=== PATIENT | male | born 1950 | race Caucasian/White ===

== ENCOUNTER 2018-11-24 19:39 | Emergency (ER) | payer MEDICARE ==
[2018-11-24] MEDS ORDERED: LIDOCAINE HCL 1% 20 ML VIAL ONE (20:10)
== END 2018-11-24 21:52 | disposition home or self-care (01) ==
LOC: EDH 19:39
DX: S93.122A Dislocation of metatarsophalangeal joint of left great toe, initial encounter (principal); Z87.891 Personal history of nicotine dependence; W55.12XA Struck by horse, initial encounter; Y93.89 Activity, other specified; Y92.89 Other specified places as the place of occurrence of the external cause; Y99.8 Other external cause status
CPT/HCPCS: 28630; 73630

== ENCOUNTER 2019-11-17 13:19 | Observation (INO) | payer MEDICARE ==
[2019-11-17] VITALS (24 sets, daily range): BP systolic 111–181; BP diastolic 63–90
[~2019-11-17] VITALS: Ht 182.9 cm; Wt 135.8 kg
[2019-11-17] MEDS ORDERED: MORPHINE SULFATE 4 MG/1ML SYG ONE ×2 (13:52→15:52)
[2019-11-17] MEDS ORDERED: ONDANSETRON HCL 4 MG/2 ML VIAL ONE ×2 (13:52→17:26)
[2019-11-17 14:12] LABS: BASOPHILS % (AUTO) 0.1 % (0.0-5.0); EOSINOPHILS % (AUTO) 0.2 % (0.0-8.0); LYMPHOCYTES % (AUTO) 6.5 % (21.0-51.0); MEAN CORPUSCULAR HEMOGLOBIN 23.3 pg (27.0-33.0); MEAN CORPUSCULAR HGB CONC 31.9 g/dL (32.0-36.0); MEAN CORPUSCULAR VOLUME 72.9 fL (79-99); MONOCYTES % (AUTO) 5.8 % (3.0-13.0); NEUTROPHILS % (AUTO) 86.9 % (40.0-77.0); PLATELET COUNT (AUTO) 289 K/uL (130-400); RED BLOOD CELL COUNT(AUTO) 5.76 MIL/uL (4.50-6.20); RED CELL DISTRIBUTION WIDTH 15.8 % (11.0-15.5); WHITE BLOOD COUNT (AUTO) 13.3 K/uL (4.8-10.8)
[2019-11-17 14:15] LABS: APPEARANCE,URINE Clear (CLEAR); BILIRUBIN,URINE Negative (NEGATIVE); COLOR,URINE Yellow (YELLOW); GLUCOSE, URINE (UA) Negative (NEGATIVE); KETONES,URINE Negative (NEGATIVE); LEUKOCYTE ESTERASE ,URINE Negative (NEGATIVE); NITRATE,URINE Negative (NEGATIVE); OCCULT BLOOD,URINE Trace (NEGATIVE); PROTEIN,URINE Negative (NEGATIVE); UROBILINOGEN,URINE 0.2 mg/dL (0.2-1.0)
[2019-11-17 14:24] LABS: POTASSIUM 3.9 mmol/L (3.5-5.1)
[2019-11-17 14:30] LABS: ALBUMIN 3.8 g/dL (3.5-5.0); BILIRUBIN,TOTAL 0.5 mg/dL (0.2-1.0); TOTAL PROTEIN, SERUM 7.2 g/dL (6.0-8.3)
[2019-11-17 14:49] LABS: RBC,URINE 0-1 /HPF (0-1)
[2019-11-17 14:50] LABS: BACTERIA,URINE None Seen /HPF (None Seen); SQUAMOUS EPITHELIAL CELL,UR 0-2 /HPF (0-2); WBC,URINE 0-1 /HPF (0-1)
[2019-11-17] MEDS ORDERED: ZOSYN 3.375GM+NS 50ML 50 ML IV ONE (15:52)
[2019-11-17] MEDS ORDERED: LIDOCAINE PF 2% 5ML ABBOJECT ONE (17:25)
[2019-11-17] MEDS ORDERED: SUCCINYLCHOLINE CHLORIDE 20 MG/ML 10 ML VIAL ONE (17:25)
[2019-11-17] MEDS ORDERED: MIDAZOLAM HCL 1 MG/ML 2ML VIAL ONE (17:26)
[2019-11-17] MEDS ORDERED: PROPOFOL 10 MG/ML 20ML VIAL IV ONE (17:26)
[2019-11-17] MEDS ORDERED: ROCURONIUM 10MG/1ML SYR 10 MG/ML ML ONE (17:27)
[2019-11-17] MEDS ORDERED: FENTANYL CITRATE PF 50 MCG/1 ML 2ML VIAL ONE ×2 (17:33→18:21)
[2019-11-17] MEDS ORDERED: LACTULOSE 20 GM/30 ML UDCUP PO PRN (17:45)
[2019-11-17] MEDS ORDERED: ONDANSETRON HCL 4 MG/2 ML VIAL IV PRN ×2 (17:45→20:45)
[2019-11-17] MEDS ORDERED: ACETAMINOPHEN 325 MG TAB PO PRN (17:45)
[2019-11-17] MEDS ORDERED: BUPIVACAINE/PF 0.5% 30ML VIAL ONE (18:00)
[2019-11-17] MEDS ORDERED: DEXAMETHASONE SOD PHOSPHATE 10MG/ML 1ML VIAL ONE (18:25)
[2019-11-17] MEDS ORDERED: GLYCOPYRROLATE 1 MG/5 ML SYRINGE ONE (18:36)
[2019-11-17] MEDS ORDERED: NEOSTIGMINE 5MG/5ML SYR IV ONE (18:36)
[2019-11-17] MEDS ORDERED: KETOROLAC TROMETHAMINE 30MG/ML ONE (18:38)
[2019-11-17] MEDS: LACTATED RINGERS 1000ML 1,000 ML IV SCH ×2 (19:00→23:23)
[2019-11-17] MEDS: ZOSYN 3.375GM+NS 50ML 50 ML IV SCH ×2 (19:59→20:29)
[2019-11-17] MEDS: FAMOTIDINE/PF 20 MG/2 ML VIAL IV SCH (20:29)
[2019-11-17] MEDS ORDERED: MORPHINE SULFATE 4 MG/1ML SYG IVP PRN (20:30)
[2019-11-17] MEDS ORDERED: ACETAMINOPHEN-CODEINE 300/30MG TAB PO PRN (20:45)
[2019-11-18 00:17] VITALS: BP 105/67
[2019-11-18 03:49] VITALS: BP 97/60
[2019-11-18 03:50] LABS: BASOPHILS % (AUTO) 0.1 % (0.0-5.0); EOSINOPHILS % (AUTO) 0.1 % (0.0-8.0); HEMATOCRIT 37.5 % (42-54); LYMPHOCYTES % (AUTO) 8.6 % (21.0-51.0); MEAN CORPUSCULAR HEMOGLOBIN 23.2 pg (27.0-33.0); MEAN CORPUSCULAR HGB CONC 31.7 g/dL (32.0-36.0); MEAN CORPUSCULAR VOLUME 73.2 fL (79-99); MONOCYTES % (AUTO) 6.7 % (3.0-13.0); NEUTROPHILS % (AUTO) 84.1 % (40.0-77.0); PLATELET COUNT (AUTO) 247 K/uL (130-400); RED BLOOD CELL COUNT(AUTO) 5.12 MIL/uL (4.50-6.20); RED CELL DISTRIBUTION WIDTH 15.8 % (11.0-15.5); WHITE BLOOD COUNT (AUTO) 11.2 K/uL (4.8-10.8)
[2019-11-18 04:08] LABS: BILIRUBIN,TOTAL 0.5 mg/dL (0.2-1.0); POTASSIUM 4.3 mmol/L (3.5-5.1); TOTAL PROTEIN, SERUM 6.3 g/dL (6.0-8.3)
[2019-11-18] MEDS: ZOSYN 3.375GM+NS 50ML 50 ML IV SCH (05:11)
[2019-11-18 08:34] VITALS: BP 112/63
[2019-11-18] MEDS: FAMOTIDINE/PF 20 MG/2 ML VIAL IV SCH (09:13)
[2019-11-18 11:34] VITALS: BP 116/71
[2019-11-18] MEDS ORDERED: METR500T PO (13:02)
== END 2019-11-18 16:15 | disposition home or self-care (01) ==
LOC: EDH 13:19 → INTOOBSV 17:39 → EDHIP 17:39 → 3AH 20:36
PROVIDERS: ADMIT Hospitalist; ATTEND Hospitalist
DX: K35.80 Unspecified acute appendicitis (principal); J98.11 Atelectasis; K57.30 Diverticulosis of large intestine without perforation or abscess without bleeding; K42.9 Umbilical hernia without obstruction or gangrene; Z87.891 Personal history of nicotine dependence
CPT/HCPCS: 36415 ×2; 44970; 74176; 80053 ×2; 81001; 85025 ×2; 93005; 96361; 96365; 96366 ×2; 96375; 96376; 99285; A4649 ×5; A4930; A6206; A6207; C1769 ×3; G0378 ×8; J0330; J1100; J1885; J2001; J2250; J2270 ×2; J2405 ×2; J2543 ×3; J2704; J2710; J3010 ×2; J3490 ×4; J7030; J7120 ×2

== ENCOUNTER 2020-10-11 05:55 | Day surgery (SDC) | payer MEDICARE ==
[~2020-10-11] VITALS: Ht 182.9 cm; Wt 129.3 kg
[2020-10-11] VITALS (7 sets, daily range): BP systolic 98–133; BP diastolic 60–75
[2020-10-11] MEDS ORDERED: 0.9%NACL 1000ML 1,000 ML IV ONE (06:47)
[2020-10-11] MEDS ORDERED: PROPOFOL 10 MG/ML 20ML VIAL IV ONE (07:45)
[2020-10-11] MEDS ORDERED: LIDOCAINE PF 100MG/5ML (2%) SYRINGE 5ML ONE (07:45)
[2020-10-11] MEDS ORDERED: PHENYLEPHRINE HCL 10 MG/ML 1ML VIAL IV ONE (07:55)
== END 2020-10-11 08:32 | disposition home or self-care (01) ==
LOC: ENDO 05:55 → DAH 05:55 → ENDO 08:32
PROVIDERS: ATTEND Internal Medicine Gastroenterology
DX: C20 Malignant neoplasm of rectum (principal); Z20.822 Contact with and (suspected) exposure to COVID-19; I10 Essential (primary) hypertension; M19.90 Unspecified osteoarthritis, unspecified site; Z86.010 Personal history of colon polyps; Z90.49 Acquired absence of other specified parts of digestive tract; Z79.899 Other long term (current) drug therapy
CPT/HCPCS: 45341; 87635; A4215; A4620; A4657; C9803; J2001; J2370; J2704; J7030